=== PATIENT | male | born 1960 | race Caucasian/White ===

== ENCOUNTER 2019-04-11 14:57 | Emergency (ER) | payer OTHER ==
[~2019-04-11] VITALS: Ht 165.1 cm; Wt 85.3 kg
[~2019-04-11 14:57] MED LIST: NITR-58 PO
[2019-04-11 15:08] VITALS: BP 128/60; PULSE 68; RESP 18; Ht 165.1 cm; Wt 85.3 kg
--- NOTE | 2019-04-11 16:29 | ERD ---
ER Documentation Chief Complaint Chief Complaint blood in urine , painful urination x 1 day ROS All systems reviewed and are negative except as per history of present illness. Medications Home Meds Active Scripts Nitrofurantoin Monohyd Macrocr* (Macrobid*) 100 Mg Capsr, 100 MG PO BID for uti for 7 Days, #14 CAP Prov:PRAMOD JANE DO 04/11/19 Physical Exam Vitals Vital Signs Date Temp Pulse Resp B/P (MAP) Pulse Ox O2 O2 Flow FiO2 Time Delivery Rate 04/11/19 98.6 68 18 128/60 98 15:08 (82) Physical Exam Const: No acute distress Head: Atraumatic Eyes: Normal Conjunctiva ENT: Normal External Ears, Nose and Mouth. Neck: Full range of motion. No meningismus. Resp: Clear to auscultation bilaterally Cardio: Regular rate and rhythm, no murmurs Abd: Soft, non tender, non distended. Normal bowel sounds Skin: No petechiae or rashes Back: No midline or flank tenderness Ext: No cyanosis, or edema Neur: Awake and alert Psych: Normal Mood and Affect Result Diagram: 04/11/19 1536 04/11/19 1537 Results 24 hrs Laboratory Tests Test 04/11/19 15:33 04/11/19 15:36 04/11/19 15:37 Urine Color STRAW Urine Clarity CLEAR Urine pH 7.0 Urine Specific [place] 1.002 Urine Ketones NEGATIVE mg/dL Urine Nitrite NEGATIVE mg/dL Urine Bilirubin NEGATIVE mg/dL Urine Urobilinogen NEGATIVE mg/dL Urine Leukocyte Esterase 2+ Maurice/ul Urine Microscopic RBC 2 /HPF Urine Microscopic WBC 44 /HPF Urine Bacteria FEW /HPF Urine Hemoglobin 3+ mg/dL Urine Glucose NEGATIVE mg/dL Urine Total Protein NEGATIVE mg/dl White Blood Count 13.5 10^3/ul Red Blood Count 5.12 10^6/ul Hemoglobin 14.5 g/dl Hematocrit 44.2 % Mean Corpuscular Volume 86.3 fl Mean Corpuscular Hemoglobin 28.3 pg Mean Corpuscular 32.8 g/dl Hemoglobin Concent Red Cell Distribution Width 13.1 % Platelet Count 359 10^3/UL Mean Platelet Volume 9.8 fl Immature Granulocytes % 0.800 % Neutrophils % 74.7 % Lymphocytes % 15.0 % Monocytes % 7.1 % Eosinophils % 2.0 % Basophils % 0.4 % Nucleated Red Blood Cells % 0.0 /100WBC Immature Granulocytes # 0.110 10^3/ul Neutrophils # 10.1 10^3/ul Lymphocytes # 2.0 10^3/ul Monocytes # 1.0 10^3/ul Eosinophils # 0.3 10^3/ul Basophils # 0.1 10^3/ul Nucleated Red Blood Cells # 0.0 10^3/ul Sodium Level 136 mmol/L Potassium Level 3.6 mmol/L Chloride Level 100 mmol/L Carbon Dioxide Level 28 mmol/L Anion Gap 8 Blood Urea Nitrogen 16 mg/dl Creatinine 1.00 mg/dl Est Glomerular Filtrat > 60 mL/min Rate mL/min Glucose Level 103 mg/dl Calcium Level 10.0 mg/dl Total Bilirubin 0.4 mg/dl Direct Bilirubin 0.00 mg/dl Indirect Bilirubin 0.4 mg/dl Aspartate Amino 28 IU/L Transf (AST/SGOT) Alanine 34 IU/L Aminotransferase (ALT/SGPT) Alkaline Phosphatase 73 IU/L Total Protein 7.8 g/dl Albumin 4.4 g/dl Globulin 3.40 g/dl Albumin/Globulin Ratio 1.29 Departure Diagnosis: Primary Impression: Hematuria Hematuria type: unspecified type Qualified Codes: R31.9 - Hematuria, unspecified Condition: Fair Patient Instructions: Hematuria Referrals: [facility] YOU HAVE RECEIVED A MEDICAL SCREENING EXAM AND THE RESULTS INDICATE THAT YOU DO NOT HAVE A CONDITION THAT REQUIRES URGENT TREATMENT IN THE EMERGENCY DEPARTMENT. FURTHER EVALUATION AND TREATMENT OF YOUR CONDITION CAN WAIT UNTIL YOU ARE SEEN IN YOUR DOCTORS OFFICE WITHIN THE NEXT 1-2 DAYS. IT IS YOUR RESPONSIBILITY TO MAKE AN APPOINTMENT FOR FOLOW-UP CARE. IF YOU HAVE A PRIMARY DOCTOR --you should call your primary doctor and schedule an appointment IF YOU DO NOT HAVE A PRIMARY DOCTOR YOU CAN CALL OUR PHYSICIAN REFERRAL HOTLINE AT IF YOU CAN NOT AFFORD TO SEE A PHYSICIAN YOU CAN CHOSE FROM THE FOLLOWING [facility] [id number] [facility] [address] [facility] [address] [facility] [address] [facility] [address] [facility]. [facility] [address] Additional Instructions: Llame al doctor MAANA y cecil lyndon PATSY PARA DENTRO DE 1-2 HARPER.Dgale a la secretaria que nosotros le instruimos hacer esta patsy.Avise o llame si melo condicin se empeora antes de la patsy. Regresa aqui si peor o no mejor. seguimiento con urologa en 1 semana si no mejora los sntomas PRAMOD JANE DO Apr 11, 2019 16:29
== END 2019-04-11 19:28 | disposition home or self-care (01) ==
LOC: E/R 14:57
DX: R31.9 Hematuria, unspecified (principal)
CPT/HCPCS: 80053; 81001; 85025; Z7502; 99283